=== PATIENT | male | born 1950 | race Caucasian/White ===

== ENCOUNTER 2017-07-15 05:45 | Day surgery (SDC) | payer MEDICARE ==
[2017-07-15] MEDS ORDERED: Ketamine HCl 50 MG/ML IV ONE (05:46)
[2017-07-15] MEDS ORDERED: DIPRIVAN 200 MG/20 ML IV ONE (05:46)
[2017-07-15] MEDS ORDERED: Lactated Ringers 1,000 ML IV SCH (06:00)
[2017-07-15 08:18] VITALS: O2SAT 96
--- NOTE | 2017-07-15 09:14 | OP ---
SURGERY DATE/TIME: 07/15/2017 0721 PREOPERATIVE DIAGNOSIS: Screening exam. POSTOPERATIVE DIAGNOSIS: Small polyps in the transverse and sigmoid colon. PROCEDURE: Colonoscopy with biopsy. SURGEON: Dr. Castellanos. ANESTHESIA: MAC. Medications given by anesthesia department. HISTORY: The patient is a 67 year-old white male presenting now for his first colonoscopy. The patient was appraised of the risks of the procedure including the risk of perforation, phlebitis, untoward reaction to medication, bleeding and missed lesions. The patient verbalized his understanding and desired to have the procedure performed. DESCRIPTION OF PROCEDURE: The patient was given the medications by the anesthesia department. He had continuous pulse oximetry, ECG monitoring, intermittent blood pressure monitoring and tidal CO2 monitoring during the examination. He was placed in the left lateral decubitus position. A digital rectal examination was performed and revealed normal anal sphincter tone and no masses and normal prostate. The flexible Olympus pediatric colonoscope was used to intubate the rectum. A view of the colon was developed sequentially to the cecum. Upon insertion and withdrawal, there was noted three small polyps that were questionable for possible adenomatous change. These were biopsied for pathologic confirmation. Upon insertion and withdrawal including retroflex view in the rectum, no other mucosal lesions being encountered the scope was removed from the patient who tolerated the procedure well and was sent back to OP recovery in good condition. The prep was noted to be good.
[2017-07-15 09:18] VITALS: BP 147/88; PULSE 52
== END 2017-07-15 09:00 | disposition home or self-care (01) ==
LOC: SDC 05:45
PROVIDERS: ATTEND Family Medicine
PROC: 0DBN8ZX Excision of Sigmoid Colon, Via Natural or Artificial Opening Endoscopic, Diagnostic (ICD-10-PCS; principal; 2017-07-15)
PROC: 0DBL8ZX Excision of Transverse Colon, Via Natural or Artificial Opening Endoscopic, Diagnostic (ICD-10-PCS; 2017-07-15)
DX: K63.5 Polyp of colon (principal); Z12.11 Encounter for screening for malignant neoplasm of colon; I10 Essential (primary) hypertension; E78.5 Hyperlipidemia, unspecified
CPT/HCPCS: 00810; 36415; 88305; J2704

== ENCOUNTER 2018-08-02 09:01 | Emergency (ER) | payer MEDICARE ==
--- NOTE | 2018-08-02 09:25 | ERPHSYRPT ---
- History of Present Illness Time Seen by Provider: 08/02/18 09:14 Source: patient Exam Limitations: no limitations Patient Subjective Stated Complaint: HEAD LACERATION FROM HITTING HEAD ON BACK CAR [place] Triage Nursing Assessment: PT WAS LOADING THINGS INTO BACK OF VEHICLE AND ARAGON DOOR CAME DOWN ON HEAD. DENIES SYNCOPE. Physician History: This is 68-year-old white male arrives with complaint of laceration to the top of his head (scalp) symptoms since just prior to arrival According to the patient she was getting into his car when his trunk lid came down on his head he has approximately 3 cm laceration to his scalp in the left top of his head parietal area he has no loss of consciousness she denies any other complaints. Last tetanus is 5 years ago. Past medical history includes hypertension past surgical history includes a neck cyst. . Timing/Duration: today Severity: mild Modifying Factors: Improves With: nothing Associated Symptoms: other (3 cm scalp laceration), No nausea, No vomiting, No abdominal pain, No shortness of breath, No heartburn, No diaphoresis, No cough, No chills, No chest pain, No fever, No headaches, No loss of appetite, No malaise, No rash, No syncope, No seizure, No weakness Allergies/Adverse Reactions: Penicillins Adverse Reaction (Intermediate, Verified 07/15/17 06:02) Rash Home Medications: Alprazolam 1 mg [Xanax 1 mg] 1 mg PO HS 07/10/17 [History] Lisinopril 40 mg PO DAILY 07/10/17 [History] Lovastatin 20 mg PO DAILY 07/10/17 [History] Aspirin 81 gm Chew [Baby Aspirin 81 mg Chew] 81 mg PO DAILY 07/15/17 [ History] Hx Tetanus, Diphtheria Vaccination/Date Given: Yes (WITHIN 5 YEARS) - Review of Systems Constitutional: No Fever, No Chills Eyes: No Symptoms Ears, Nose, & Throat: No Symptoms Respiratory: No Cough, No Dyspnea Cardiac: No Chest Pain, No Edema, No Syncope Abdominal/Gastrointestinal: No Abdominal Pain, No Nausea, No Vomiting, No Diarrhea Genitourinary Symptoms: No Dysuria Musculoskeletal: No Back Pain, No Neck Pain Skin: Other (3 cm scalp laceration left top of head, parietal region) Neurological: No Dizziness, No Focal Weakness, No Sensory Changes Psychological: No Symptoms Endocrine: No Symptoms All Other Systems: Reviewed and Negative - Past Medical History Pertinent Past Medical History: Yes Neurological History: No Pertinent History ENT History: No Pertinent History Cardiac History: Hypertension Respiratory History: No Pertinent History Endocrine Medical History: No Pertinent History Musculoskeletal History: No Pertinent History GI Medical History: No Pertinent History History: No Pertinent History Psycho-Social History: No Pertinent History Male Reproductive Disorders: No Pertinent History - Past Surgical History Past Surgical History: Yes Neuro Surgical History: No Pertinent History Cardiac: No Pertinent History Respiratory: No Pertinent History Gastrointestinal: No Pertinent History Genitourinary: No Pertinent History Musculoskeletal: Other Male Surgical History: No Pertinent History Other Surgical History: neck cyst removed several yrs ago under local anes. only - Social History Smoking Status: Never smoker Exposure to second hand smoke: No Drug Use: none - Nursing Vital Signs Nursing Vital Signs: Initial Vital Signs Temperature 97.8 F 08/02/18 09:01 Pulse Rate 60 08/02/18 09:01 Respiratory Rate 18 08/02/18 09:01 Blood Pressure 177/82 08/02/18 09:01 O2 Sat by Pulse Oximetry 95 08/02/18 09:01 Pain Scale Pain Intensity 6 - Physical Exam General Appearance: no apparent distress, alert Eye Exam: PERRL/EOMI, eyes nml inspection Ears, Nose, Throat Exam: normal ENT inspection, TMs normal, pharynx normal, moist mucous membranes Neck Exam: normal inspection, non-tender, supple, full range of motion Respiratory Exam: normal breath sounds, lungs clear, No respiratory distress Cardiovascular Exam: regular rate/rhythm, normal heart sounds, normal peripheral pulses Gastrointestinal/Abdomen Exam: soft, normal bowel sounds, No tenderness, No mass Back Exam: normal inspection, normal range of motion, No CVA tenderness, No vertebral tenderness Extremity Exam: normal inspection, normal range of motion, pelvis stable Neurologic Exam: alert, oriented x 3, cooperative, merchandise deliverer II-XII nml as tested, normal mood/affect, nml cerebellar function, nml station & gait, sensation nml, No motor deficits Skin Exam: other (3 cm scalp laceration top of head left parietal region no active bleeding) SpO2 Interpretation: normal (95%) SpO2: 95 Oxygen Delivery: Room Air - Course Nursing assessment & vital signs reviewed: Yes - Progress Progress: improved Progress Note: 08/02/18 09:23 This is a 68-year-old white male he arrives with complaint of a 3 cm scalp laceration which occurred when the trunk lid of his car came down on his head. This area has been cleansed by the nurse it is not having active bleeding at this time wound edges approximate easily. Will go ahead and have nurse sterilely clean the area, irrigate the area with saline, and repair area with Dermabond. 08/02/18 09:24 patient's tetanus is up-to-date 08/02/18 09:33 Wound closed with skin glue by patient's nurse good approximation no bleeding, Will release. - Departure Time of Disposition: 09:33 Departure Disposition: Home Clinical Impression: Scalp laceration Qualifiers: Encounter type: initial encounter Qualified Code(s): S01.01XA - Laceration without foreign body of scalp, initial encounter Condition: Fair Critical Care Time: No Referrals: ALTAGRACIA DINERO [Primary Care Provider] - Instructions: Laceration Repair With Glue (DC) Additional Instructions: Do not apply ointments to laceration. Do not soak the area. Follow-up with your family doctor or return if any problems. Return for acute distress or for severe symptoms.
[2018-08-02 09:44] VITALS: BP 168/93; PULSE 56; O2SAT 97
== END 2018-08-02 09:50 | disposition home or self-care (01) ==
LOC: ED 09:01
DX: S01.01XA Laceration without foreign body of scalp, initial encounter (principal); W22.09XA Striking against other stationary object, initial encounter; Y93.9 Activity, unspecified; I10 Essential (primary) hypertension
CPT/HCPCS: 12002; 99283

== ENCOUNTER 2024-11-10 19:43 | Emergency (ER) | payer MEDICARE | END 2024-11-10 22:02 | disposition left against medical advice (07) | LOC: ED 19:43 | DX: Z53.21 Procedure and treatment not carried out due to patient leaving prior to being seen by health care provider (principal) ==